=== PATIENT | female | born 1995 | race Caucasian/White ===

== ENCOUNTER 2017-01-23 10:50 | Emergency (ER) | payer OTHER ==
[~2017-01-23] VITALS: Ht 157.5 cm; Wt 48.1 kg
[2017-01-23 11:36] LABS: BASOPHIL % 0.1 % (0-2); PLATELET COUNT 226 x10^3mcL (130-400); RED CELL DISTRIBUTION WIDTH 12.7 % (11.5-14.5)
[2017-01-23 11:47] LABS: CALCIUM 8.6 mg/dL (8.5-10.1); CARBON DIOXIDE 27.1 mmol/L (21-32); CHLORIDE SERUM 103 mmol/L (98-107); CREATININE SERUM 0.6 mg/dL (0.6-1.0); GFR1 > 60 mL/min; GLUCOSE SERUM 112 mg/dL (74-106); POTASSIUM SERUM 3.9 mmol/L (3.5-5.1); SODIUM SERUM 138 mmol/L (136-145)
[2017-01-23 11:49] LABS: ALBUMIN 3.9 g/dL (3.4-5.0); ALKALINE PHOSPHATASE 59 U/L (46-116); ALT/SGPT 45 U/L (14-59); AST/SGOT 19 U/L (15-37); BILIRUBIN TOTAL 0.5 mg/dL (0.20-1.00); HDL CHOLESTEROL 50 mg/dL (40-60); LIPASE 181 IU/L (73-393); TOTAL PROTEIN, SERUM 7.5 g/dL (6.4-8.2); TRIGLYCERIDES 41 mg/dL (<150)
[2017-01-23 11:50] LABS: CHOLESTEROL 129 mg/dL (<200); CHOLESTEROL/HDL RATIO 2.6
[2017-01-23 11:50] LABS: microscopic required? YES; urine erythrocyte 2+ (NEGATIVE)
[2017-01-23 12:02] LABS: FREE T4 1.05 ng/dL (0.76-1.46); FREE THYROXINE INDEX 3.2 ug/dL (1.4-4.5)
[2017-01-23 12:10] LABS: T3 TOTAL 1.02 ng/mL
[2017-01-23 13:25] VITALS: BP 107/83
== END 2017-01-23 13:25 | disposition home or self-care (01) ==
LOC: ED 10:50
PROVIDERS: Specialist
DX: N39.0 Urinary tract infection, site not specified (principal); Z88.6 Allergy status to analgesic agent
CPT/HCPCS: 83880; 84439; J2405; J7030; Q0092